=== PATIENT | female | born 1990 | race American Indian/Alaskan Native ===

== ENCOUNTER 2018-02-27 08:49 | Emergency (ER) | payer SELFPAY ==
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
[2018-02-27] MEDS ORDERED: NACL 0.9% 1000 ML 1,000 ML IV ONE (09:59)
[2018-02-27] MEDS ORDERED: REGLAN IV ONE (09:59)
[2018-02-27] MEDS ORDERED: TORADOL IV ONE (10:01)
--- NOTE | 2018-02-27 10:45 | Cat Scan Report ---
CT scan of head without IV contrast: History: Headache. Findings: Ventricles are normal in size and midline in location. No evidence of anemia, hemorrhage or mass. No extra axial fluid collection. Normal brainstem and cerebellum. Normal sinuses and mastoid air cells. Impression: No acute intracranial abnormality
[2018-02-27 11:51] VITALS: BP 97/64
== END 2018-02-27 11:51 | disposition home or self-care (01) ==
LOC: ED 08:49
DX: G43.909 Migraine, unspecified, not intractable, without status migrainosus (principal); K08.89 Other specified disorders of teeth and supporting structures; F17.200 Nicotine dependence, unspecified, uncomplicated
CPT/HCPCS: 70450; 96361; 96374; 96375; 99283; J1885; J2765; J7030